=== PATIENT | female | born 1965 | race Caucasian/White ===

== ENCOUNTER 2019-06-06 17:43 | Inpatient (IN) | payer OTHER, SELFPAY ==
[2019-06-06] VITALS (16 sets, daily range): BP systolic 109–140; BP diastolic 60–84; PULSE 104–127; RESP 16–22; TEMP 36.8–37.1; O2SAT 89–94; BMI 31.8
--- NOTE | ~2019-06-06 | US_ITS ---
EXAMINATION: US venous doppler [facility] DATE: 06/07/2019 14:02 INDICATION: Lower limb swelling. TECHNIQUE: Grayscale ultrasound images without and with compression and Doppler ultrasound images of the bilateral lower extremity veins were obtained. COMPARISON: None. FINDINGS: The visualized portions of right common femoral vein, profunda (deep) femoral vein, femoral vein, pop liteal vein, peroneal veins, posterior tibial veins, and greater saphenous vein outflow are patent. The visualized portions of left common femoral vein, profunda femoral vein, femoral vein, popliteal v ein, posterior tibial veins, and greater saphenous vein outflow are patent. There is thrombus in the left peroneal veins. IMPRESSION: 1. Deep vein thrombosis involving the left peroneal veins. I called this result to Karen rodney on 06/07/19 at 14:10. Reviewed, dictated and finalized at location A. EGE COACH IMPRESSION: 1. Deep vein thrombosis involving the left peroneal veins. I called this resul t to Karen Iqbal on 06/07/19 at 14:10.
--- NOTE | ~2019-06-06 | CT_ITS ---
EXAMINATION: CTA chest PE protocol DATE: 06/06/2019 19:59 INDICATION: Dyspnea. Lower limb swelling. TECHNIQUE: Computed tomography (CT) pulmonary angiogram of the chest was performed with 100 mL Omnipa que-350 intravenous contrast. Additional 3D reconstructions utilizing coronal maximum intensity proje ction (MIP) were performed. Automated exposure control and iterative reconstruction technique were em ployed. The dose-length product was 741.68 mGy-cm. COMPARISON: None FINDINGS: Good contrast opacification of the pulmonary arteries. There is mild streak artifact from dense contr ast in the superior vena cava and right atrium as well as a metallic ring on the patient's film which is placed over the sternum. Mild scattered respiratory motion artifact along the streak artifact srinivasan s not significantly limit evaluation. No pulmonary embolism. Mild linear discoid atelectasis at the r ight middle and lower lobes. No pneumonia, pulmonary edema, pleural effusion or pneumothorax. Heart s ize is normal. Atherosclerotic coronary artery calcifications. No pericardial effusion. Thoracic aort a is normal in caliber with no dissection. No pathologically enlarged thoracic lymphadenopathy. Diffu se hepatic steatosis. 9 mm cyst at the upper pole of the right kidney. Mild thoracic spondylosis. IMPRESSION: 1. No pulmonary embolism or other acute cardiopulmonary disease. 2. Diffuse hepatic steatosis. Reviewed, dictated and finalized at location A. [employer]
--- NOTE | ~2019-06-06 | XR_ITS ---
EXAMINATION: XR chest 2V DATE: 06/06/2019 18:34 INDICATION: Cough, congestion, fever and sore throat. TECHNIQUE: PA and lateral views of the chest were obtained. COMPARISON: Chest radiograph dated 10/17/2010 FINDINGS: Mild infrahilar bronchial wall thickening. A few small linear opacities at the anterior lung bases mo st likely atelectasis. No pleural effusion or pneumothorax. The cardiomediastinal silhouette is juan l. Mild thoracic levocurvature with mild spondylosis. IMPRESSION: 1. Perihilar and infrahilar bronchial wall thickening consistent with bronchitis but can also be seen with reactive airway disease/asthma. 2. Mild linear opacities at the lung bases which favors atelectasis over pneumonia. Reviewed, dictated and finalized at location A. TLER IMPRESSION: 1. Perihilar and infrahilar bronchial wall thickening consistent with bronchiti s but can also be seen with reactive airway disease/asthma. 2. Mild linear opacities at the lung bases which favors atelectasis over pneumo kia.
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
--- NOTE | 2019-06-06 18:14 | ECG_ITS ---
Measurements Intervals [place] Rate: 105 P: 51 VT: 164 QRS: 14 QRSD: 85 T: 55 QT: 314 QTc: 416 Interpretive Statements SINUS TACHYCARDIA LOW QRS VOLTAGE IN PRECORDIAL LEADS NONSPECIFIC ST ELEVATION- DIFFUSE LEADS BASELINE ARTIFACT- I, II, AVR ABNORMAL ECG Electronically Signed On 06-06-2019 18:34:46 SLIVER LAP MACHINE TENDER by Alexis Alfonso D.O.
[2019-06-06 18:34] LABS: Basophils Percent Auto 0.3 % (0.2-1.2); Eosinophils Absolute Auto 0.1 K/mm3 (0-0.3); Eosinophils Percent Auto 1.1 % (0-4.4); Hematocrit 40.4 % (37.0-47.0); Hemoglobin 13.2 g/dL (12.0-15.0); Immature Granulocyte Absolute 0.03 K/mm3 (0.00-0.031); Immature Granulocyte Percent A 0.5 % (0-0.5); Mean Corpuscular HGB Conc 32.7 g/dl (32-36); Mean Corpuscular Hemoglobin 30.3 pg (26-34); Mean Corpuscular Volume 92.7 fl (80-100); Mean Platelet Volume 10.6 fl (7.4-10.4); Monocytes Absolute Auto 0.3 K/mm3 (0.1-0.6); Monocytes Percent Auto 5.6 % (2.6-8.5); Neutrophils Absolute Auto 4.5 K/mm3 (1.3-6.7); Neutrophils Percent Auto 74.5 % (45.5-73.1); Platelet Count Result 297 k/mm3 (150-375); Red Blood Count 4.36 M/mm3 (4.2-5.4); Red Cell Distribution Width 14.7 % (11.5-14.5); White Blood Count 6.1 K/mm3 (4.5-10.0)
[2019-06-06 18:46] LABS: Alanine Aminotransferase 23 U/L (4-35); Albumin Level 3.6 g/dL (3.5-5.1); Alkaline Phosphatase 117 U/L (38-126); Aspartate Amino Transferase 51 U/L (14-36); Blood Urea Nitrogen 15 mg/dL (7-17); Calcium 8.3 mg/dL (8.4-10.2); Carbon Dioxide 27 mmol/L (22-30); Chloride 94 mmol/L (98-107); Estimated CRCL calculation 98 ml/min; Estimated Glomerular Filt Rate > 60; Glucose 425 mg/dL (65-105); Lipase 172 U/L (23-300); Potassium 3.8 mmol/L (3.4-5.0); Sodium 134 mmol/L (137-145)
[2019-06-06 18:47] LABS: INR 1.1; Partial Thromboplastin Time 28.5 SECONDS (22.3-36.8); Prothrombin Time 13.4 Seconds (11.1-14.7)
[2019-06-06 18:56] LABS: Add Urine Microscopic? YES; Appearance Urine Clear (Clear); Bacteria Urine Trace /hpf; Bilirubin Urine Negative (Negative); Blood Urine Negative (Negative); Color Urine Yellow (Yellow); Glucose Urine UA 3+ mg/dL (Negative); Ketones Urine Negative (Negative); Leukocyte Esterase Ur Trace LEU/UL (Negative); Mucus Urine Rare /lpf; Nitrate Urine Negative (Negative); Protein Urine Negative (Negative); RBC Urine 0-2 /hpf (0-2); Squamous Epithelial Cell Urine Moderate /hpf (Few); Urobilinogen Urine Negative mg/dL (<2.0); WBC Urine 0-3 /hpf
--- NOTE | 2019-06-06 18:56 | PC.NURSE ---
Patient's oxygen noted to fluctuate between 88-92% on room air. Dr Gomez aware. Will place orders.
[2019-06-06 18:57] LABS: Specific Grav Ur 1.032 (1.001-1.035)
[2019-06-06 18:57] LABS: NT Pro B Type Natriuretic Pept 61 PG/ML (5-100); Troponin I < 0.012 ng/mL (0.000-0.034)
[2019-06-06 19:12] LABS: Alveolar/Arterial O2 Gradient 41.3 mmHg; Base Excess ABG 3.1 mEq/l (+/-2.0); Fractional Inspired Oxygen 21 %; HCO3 ABG 26.8 mEq/l (22.0-26.0); Oxygen Content ABG 17.7 %vol (16.0-22.0); Oxygen Saturation ABG 93.3 % (95.0-100.0); Oxyhemoglobin 89.1 % THb (90.0-100.0); PCO2 ABG 38.1 mmHg (35.0-45.0); PO2 ABG 62.8 mmHg (80.0-100.0); PO2 FiO2 Ratio Arterial Blood 2.99 %; Total Hemoglobin 14.1 g/dL (12.0-18.0); pH ABG 7.465 (7.350-7.450)
[2019-06-06 19:14] LABS: Device ROOM AIR; Modified Allen's Test Pass; Site Drawn RIGHT RADIAL
[2019-06-06] MEDS: IPRATROPIUM BR 0.02% INH SOLN 0.5 MG/2.5 ML VIAL INHALATION ×2 (19:19→21:33)
--- NOTE | 2019-06-06 19:33 | PC.NURSE ---
Patients O2 sat 87-90% room air, patient placed on O2@2L/NC. Will continue to monitor.
[2019-06-06] MEDS: SODIUM CHLORIDE 0.9% IV 1,000 ML 999 ML IV CONT (20:19)
[2019-06-06] MEDS: methylPREDNISolone SOD SUCC 125 MG VIAL IV PUSH (20:51)
[2019-06-06 21:57] LABS: Lactic Acid Reflex 1.6 mmol/L (0.7-2.1)
--- NOTE | 2019-06-06 22:08 | PC.NURSE ---
Patient report faxed to 3rd [facility] med-s[facility].
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
[2019-06-06 22:24] LABS: Glucose Point of Care 364 (65-105)
[2019-06-06] MEDS: SODIUM CHLORIDE 0.9% IV 1,000 ML 100 ML IV CONT (22:45)
--- NOTE | 2019-06-06 23:18 | ADMGEN ---
This patient, Jamia Arevalo, was admitted to [facility] Room 329-01. Patient/family oriented to hospital policies and general routines including ID bracelet, bed and alarms, visiting hours, pain management, procedures, bathroom and other care routines, personal items, smoking policy, room service/diet, and visiting hours. Valuables list has been completed. Information on how to activate the Rapid Response Team has been discussed. Patient/Family are encouraged to report perceived risks to care and to ask questions if they do not understand what they are told or what they should do.
[2019-06-07] VITALS (17 sets, daily range): BP systolic 116–140; BP diastolic 65–70; PULSE 80–109; RESP 18–20; TEMP 36.9–37.1; O2SAT 92–96
[2019-06-07] MEDS: methylPREDNISolone SOD SUCC 125 MG VIAL 60 MG IV PUSH ×2 (01:25→05:57)
[2019-06-07] MEDS: IPRATROPIUM BR 0.02% INH SOLN 0.5 MG/2.5 ML VIAL INHALATION ×3 (02:08→22:16)
[2019-06-07] MEDS: LEVALBUTEROL NEB 1.25 MG/3 ML 0.63 MG INHALATION ×3 (02:08→22:16)
[2019-06-07 06:26] LABS: Basophils Percent Auto 0.3 % (0.2-1.2); Hemoglobin 12.9 g/dL (12.0-15.0); Immature Granulocyte Absolute 0.02 K/mm3 (0.00-0.031); Immature Granulocyte Percent A 0.5 % (0-0.5); Lymphocytes Percent Auto 13.1 % (18.3-44.2); Mean Corpuscular HGB Conc 32.3 g/dl (32-36); Mean Corpuscular Hemoglobin 30.1 pg (26-34); Mean Corpuscular Volume 93.2 fl (80-100); Mean Platelet Volume 10.7 fl (7.4-10.4); Monocytes Absolute Auto 0.1 K/mm3 (0.1-0.6); Monocytes Percent Auto 1.6 % (2.6-8.5); Neutrophils Absolute Auto 3.2 K/mm3 (1.3-6.7); Neutrophils Percent Auto 84.5 % (45.5-73.1); Platelet Count Result 302 k/mm3 (150-375); Red Blood Count 4.29 M/mm3 (4.2-5.4); Red Cell Distribution Width 14.8 % (11.5-14.5); White Blood Count 3.8 K/mm3 (4.5-10.0)
[2019-06-07 06:33] LABS: Blood Urea Nitrogen 13 mg/dL (7-17); Calcium 7.9 mg/dL (8.4-10.2); Carbon Dioxide 26 mmol/L (22-30); Chloride 97 mmol/L (98-107); Estimated CRCL calculation 104 ml/min; Estimated Glomerular Filt Rate > 60; Glucose 430 mg/dL (65-105); Potassium 4.3 mmol/L (3.4-5.0); Sodium 137 mmol/L (137-145)
[2019-06-07 07:23] LABS: Glucose Point of Care 388 (65-105)
[2019-06-07] MEDS: INSULIN ASPART (*BKC) 100 UNITS/ML SUB-Q ×4 (08:04→17:55)
[2019-06-07] MEDS: MONTELUKAST SODIUM 10 MG TABLET PO (08:13)
[2019-06-07] MEDS: hydroCHLOROthiazide 25 MG TABLET PO (08:13)
[2019-06-07] MEDS: glyBURIDE 5 MG TABLET PO (08:13)
[2019-06-07] MEDS: SODIUM CHLORIDE 0.9% IV 1,000 ML 100 ML IV CONT (08:18)
[2019-06-07 12:28] LABS: Glucose Point of Care 386 (65-105)
[2019-06-07] MEDS: INSULIN ASPART (*BKC) 100 UNITS/ML 6 UNITS SUB-Q ×3 (12:40→21:06)
[2019-06-07] MEDS: FUROSEMIDE INJ 40 MG/4 ML VIAL IV PUSH (12:59)
--- NOTE | 2019-06-07 13:02 | PM.IMPN ---
Progress Note: A&P Assessment and Plan (1) Bronchitis: Code(s): J40 - Bronchitis, not specified as acute or chronic Status: Acute Assessment and Plan: Patient presents with increasing shortness of breath, wheezing, hypoxic on arrival. CTA chest shows no pulmonary embolism or other acute cardiopulmonary disease. She does note that she has a history of COPD and asthma and takes albuterol and Atrovent inhalers. Continue nebulized bronchodilators, wean steroids, O2 supplementation as needed. (2) Hypoxia: Code(s): R09.02 - Hypoxemia Status: Resolved Assessment and Plan: Secondary to above. Now tolerating room air this afternoon. (3) DVT (deep venous thrombosis): Qualifiers: Affected thrombotic vein of extremity: peroneal Chronicity: acute DVT location: lower extremity Laterality: left Qualified Code(s): I82.452 - Acute embolism and thrombosis of left peroneal vein Code(s): I82.409 - Acute embolism and thrombosis of unspecified deep veins of unspecified lower extremity Status: Acute Assessment and Plan: Patient presents with increased lower extremity edema bilaterally and admits that she has not been taking her Lasix at home. Venous Dopplers reveal DVT in left peroneal vein. Started therapeutic Lovenox and will check with care coordination tomorrow regarding pricing for a NOAC. (4) Diabetes: Qualifiers: Diabetes mellitus complication status: without complication Diabetes mellitus penitentiary insulin use: without long wall shear operator use Diabetes mellitus type: type 2 Qualified Code(s): E11.9 - Type 2 diabetes mellitus without complications Code(s): E11.9 - Type 2 diabetes mellitus without complications Status: Chronic Assessment and Plan: With hyperglycemia today, last glucose 386. May be secondary to steroids. She reports taking glyburide but was taken off metformin due to GI upset. Continue her home glyburide and SSI coverage. Added scheduled mealtime bolus. Monitor with Accu-Cheks. She reports that she no longer has an Accu-Chek monitor has not checked her glucose levels for some weeks . (5) Hypertension: Qualifiers: Hypertension type: unspecified Qualified Code(s): I10 - Essential (primary) hypertension Code(s): I10 - Essential (primary) hypertension Status: Chronic Assessment and Plan: Stable maintained home hydrochlorothiazide. Continue to monitor. (6) Asthma: Qualifiers: Asthma complication type: unspecified Asthma persistence: unspecified Asthma severity: unspecified severity Qualified Code(s): J45.909 - Unspecified asthma, uncomplicated Code(s): J45.909 - Unspecified asthma, uncomplicated Status: Acute Assessment and Plan: Respiratory regimen outlined above. No respiratory distress today and she is tolerating room air. (7) Seizure: Code(s): R56.9 - Unspecified convulsions Status: Chronic Assessment and Plan: She reports a history of seizure disorder. She tells me that she takes Dilantin but this is not on her home medication. RN contacting pharmacy to confirm home med list. (8) EKG abnormality: Code(s): R94.31 - Abnormal electrocardiogram [ECG] [EKG] Status: Acute Assessment and Plan: Telemetry review shows a ventricular arrhythmia, however on most strips, QRS complexes can be seen marching through the rhythm in question. Patient is completely asymptomatic with this and denies chest pain, palpitations, dizziness. Another EKG obtained, reveals sinus rhythm. Stat potassium level 3.6, magnesium 1.8. Start oral magnesium supplementation. Continue to monitor. (9) Lower extremity edema:
--- NOTE | 2019-06-07 14:15 | ECG_ITS ---
Measurements Intervals [place] Rate: 81 P: 4 HI: 176 QRS: 0 QRSD: 85 T: 30 QT: 355 QTc: 414 Interpretive Statements SINUS RHYTHM INCOMPLETE RIGHT BUNDLE BRANCH BLOCK DELAYED PRECORDIAL R/S TRANSITION LOW QRS VOLTAGE IN PRECORDIAL LEADS BORDERLINE ECG Electronically Signed On 06-07-2019 17:49:42 MANAGER CODING by Alexis Alfonso D.O.
[2019-06-07 15:03] LABS: Magnesium 1.8 mg/dL (1.6-2.3); Potassium 3.6 mmol/L (3.4-5.0)
[2019-06-07 17:12] LABS: Glucose Point of Care 445 (65-105)
[2019-06-07] MEDS: ENOXAPARIN 80 MG/0.8 ML SYRINGE SUB-Q (17:54)
[2019-06-07 20:40] LABS: Glucose Point of Care 372 (65-105)
[2019-06-07] MEDS: INSULIN GLARGINE (*BKC) 100 UNITS/ML 10 UNITS SUB-Q (21:08)
[2019-06-07] MEDS: MAGNESIUM OXIDE 200 MG TABLET PO (21:09)
[2019-06-08] VITALS (15 sets, daily range): BP systolic 108–123; BP diastolic 54–76; PULSE 68–107; RESP 16–20; TEMP 36.6–36.9; O2SAT 92–95
[2019-06-08] MEDS: ENOXAPARIN 80 MG/0.8 ML SYRINGE SUB-Q ×2 (01:43→15:35)
[2019-06-08] MEDS: LEVALBUTEROL NEB 1.25 MG/3 ML 0.63 MG INHALATION ×3 (03:25→22:44)
[2019-06-08] MEDS: IPRATROPIUM BR 0.02% INH SOLN 0.5 MG/2.5 ML VIAL INHALATION ×3 (03:26→22:44)
--- NOTE | 2019-06-08 06:21 | PC.NURSE ---
patient reports rash. slight reddening noted to chest. Doctor ned informed and is enroute to evaluate patient.
[2019-06-08 06:33] LABS: Hematocrit 38.1 % (37.0-47.0); Hemoglobin 12.7 g/dL (12.0-15.0); Mean Corpuscular HGB Conc 33.3 g/dl (32-36); Mean Corpuscular Hemoglobin 30.5 pg (26-34); Mean Corpuscular Volume 91.6 fl (80-100); Mean Platelet Volume 10.8 fl (7.4-10.4); Platelet Count Result 317 k/mm3 (150-375); Red Blood Count 4.16 M/mm3 (4.2-5.4); Red Cell Distribution Width 14.8 % (11.5-14.5); White Blood Count 8.4 K/mm3 (4.5-10.0)
[2019-06-08 06:53] LABS: Blood Urea Nitrogen 22 mg/dL (7-17); Calcium 8.2 mg/dL (8.4-10.2); Carbon Dioxide 31 mmol/L (22-30); Chloride 97 mmol/L (98-107); Estimated CRCL calculation 104 ml/min; Estimated Glomerular Filt Rate > 60; Glucose 332 mg/dL (65-105); Magnesium 1.7 mg/dL (1.6-2.3); Phosphorus 3.6 mg/dL (2.5-4.5); Potassium 3.1 mmol/L (3.4-5.0); Sodium 135 mmol/L (137-145)
[2019-06-08 07:51] LABS: Glucose Point of Care 307 (65-105)
[2019-06-08] MEDS: predniSONE 20 MG TABLET 60 MG PO (09:21)
[2019-06-08] MEDS: MAGNESIUM OXIDE 200 MG TABLET PO ×2 (09:22→21:18)
[2019-06-08] MEDS: POTASSIUM CHLORIDE 20 MEQ TABLET 40 MEQ PO (09:25)
[2019-06-08] MEDS: hydrOXYzine HCL 25 MG TABLET PO (09:25)
[2019-06-08] MEDS: FUROSEMIDE INJ 40 MG/4 ML VIAL IV PUSH (09:26)
[2019-06-08] MEDS: INSULIN ASPART (*BKC) 100 UNITS/ML SUB-Q ×3 (09:30→18:12)
[2019-06-08] MEDS: INSULIN ASPART (*BKC) 100 UNITS/ML 6 UNITS SUB-Q ×4 (09:31→21:23)
[2019-06-08] MEDS: MONTELUKAST SODIUM 10 MG TABLET PO (09:42)
[2019-06-08] MEDS: glyBURIDE 5 MG TABLET PO (09:42)
[2019-06-08] MEDS: hydroCHLOROthiazide 25 MG TABLET PO (09:42)
[2019-06-08 12:08] LABS: Glucose Point of Care 392 (65-105)
[2019-06-08 13:42] LABS: INR 0.9; Prothrombin Time 11.7 Seconds (11.1-14.7)
--- NOTE | 2019-06-08 14:07 | PM.IMPN ---
Progress Note: A&P Assessment and Plan (1) DVT (deep venous thrombosis): Qualifiers: DVT location: lower extremity Affected thrombotic vein of extremity: peroneal Chronicity: acute Laterality: left Qualified Code(s): I82.452 - Acute embolism and thrombosis of left peroneal vein Code(s): I82.409 - Acute embolism and thrombosis of unspecified deep veins of unspecified lower extremity Status: Acute Assessment and Plan: Patient presents with increased lower extremity edema bilaterally and admits that she has not been taking her Lasix at home. Venous Dopplers reveal DVT in left peroneal vein. Started therapeutic Lovenox . Care coordination notes she would not be able to start on NOAC, Coumadin the only option due to her insurance. Start Coumadin 5 mg this evening check daily PT/INR and bridge with Lovenox until INR is therapeutic. Detailed discussion held with patient and her mother at the bedside regarding close follow-up with PCP for INR monitoring. (2) Diabetes: Qualifiers: Diabetes mellitus type: type 2 Diabetes mellitus senior living insulin use: without senior living use Diabetes mellitus complication status: without complication Qualified Code(s): E11.9 - Type 2 diabetes mellitus without complications Code(s): E11.9 - Type 2 diabetes mellitus without complications Status: Chronic Assessment and Plan: With hyperglycemia. She admits she drinking a regular Coke last night with dinner. Steroids may also be contributing. She reports taking glyburide but was taken off metformin due to GI upset. Continue her home glyburide and SSI coverage. Added scheduled mealtime bolus. Monitor with Accu-Cheks. She reports that she no longer has an Accu-Chek monitor has not checked her glucose levels for some weeks . Appreciate environmental educator consult. (3) Bronchitis: Code(s): J40 - Bronchitis, not specified as acute or chronic Status: Acute Assessment and Plan: Patient presents with increasing shortness of breath, wheezing, hypoxia on arrival. CTA chest shows no pulmonary embolism or other acute cardiopulmonary disease. She does note that she has a history of COPD and asthma and takes albuterol and Atrovent inhalers. Continue nebulized bronchodilators, wean steroids, O2 supplementation as needed. (4) Hypoxia: Code(s): R09.02 - Hypoxemia Status: Resolved Assessment and Plan: Secondary to above. Now tolerating room air this afternoon. (5) Hypertension: Qualifiers: Hypertension type: unspecified Qualified Code(s): I10 - Essential (primary) hypertension Code(s): I10 - Essential (primary) hypertension Status: Chronic Assessment and Plan: Stable maintained home hydrochlorothiazide. Continue to monitor. (6) Asthma: Qualifiers: Asthma severity: unspecified severity Asthma persistence: unspecified Asthma complication type: unspecified Qualified Code(s): J45.909 - Unspecified asthma, uncomplicated Code(s): J45.909 - Unspecified asthma, uncomplicated Status: Acute Assessment and Plan: Respiratory regimen outlined above. No respiratory distress today and she is tolerating room air. (7) Seizure: Code(s): R56.9 - Unspecified convulsions Status: Chronic Assessment and Plan: She reports a history of seizure disorder. She tells me that she has taken Dilantin but this is not on her home medication. RN contacting pharmacy to confirm home med list, pharmacy closed this weekend and will attempt contact pharmacy tomorrow to confirm her medications. (8) EKG abnormality: Code(s): R94.31 - Abnormal electrocardiogram [ECG] [EKG] Status: Acute Assessme
[2019-06-08 15:35] LABS: Glucose Point of Care 313 (65-105)
[2019-06-08 16:35] LABS: Glucose Point of Care 337 (65-105)
[2019-06-08] MEDS: WARFARIN (*PBKC) 5 MG TABLET PO (18:12)
[2019-06-08 19:38] LABS: Glucose Point of Care 411 (65-105)
[2019-06-08] MEDS: INSULIN GLARGINE (*BKC) 100 UNITS/ML 14 UNITS SUB-Q (21:25)
[2019-06-08 23:27] LABS: Glucose Point of Care 220 (65-105)
[2019-06-09] VITALS (15 sets, daily range): BP systolic 100–111; BP diastolic 63–73; PULSE 72–113; RESP 16–20; TEMP 36.1–36.6; O2SAT 91–94
[2019-06-09] MEDS: IPRATROPIUM BR 0.02% INH SOLN 0.5 MG/2.5 ML VIAL INHALATION ×3 (02:07→15:01)
[2019-06-09] MEDS: LEVALBUTEROL NEB 1.25 MG/3 ML 0.63 MG INHALATION ×3 (02:07→15:01)
[2019-06-09] MEDS: ENOXAPARIN 80 MG/0.8 ML SYRINGE SUB-Q ×2 (02:43→15:44)
[2019-06-09 06:30] LABS: INR 0.9
[2019-06-09 06:41] LABS: Alanine Aminotransferase 22 U/L (4-35); Albumin Level 3.5 g/dL (3.5-5.1); Alkaline Phosphatase 105 U/L (38-126); Aspartate Amino Transferase 24 U/L (14-36); Bilirubin,Total 0.6 mg/dL (0.2-1.3); Blood Urea Nitrogen 29 mg/dL (7-17); Calcium 8.6 mg/dL (8.4-10.2); Carbon Dioxide 29 mmol/L (22-30); Chloride 91 mmol/L (98-107); Estimated CRCL calculation 104 ml/min; Estimated Glomerular Filt Rate > 60; Glucose 231 mg/dL (65-105); Magnesium 1.7 mg/dL (1.6-2.3); Phosphorus 4.2 mg/dL (2.5-4.5); Potassium 3.2 mmol/L (3.4-5.0); Sodium 134 mmol/L (137-145)
[2019-06-09 06:51] LABS: Glucose Point of Care 231 (65-105)
[2019-06-09] MEDS: FUROSEMIDE INJ 40 MG/4 ML VIAL IV PUSH (08:03)
[2019-06-09] MEDS: MONTELUKAST SODIUM 10 MG TABLET PO (08:03)
[2019-06-09] MEDS: hydroCHLOROthiazide 25 MG TABLET PO (08:03)
[2019-06-09] MEDS: MAGNESIUM OXIDE 200 MG TABLET PO ×2 (08:03→21:21)
[2019-06-09] MEDS: glyBURIDE 5 MG TABLET PO (08:03)
[2019-06-09] MEDS: INSULIN ASPART (*BKC) 100 UNITS/ML SUB-Q ×3 (08:07→17:22)
[2019-06-09] MEDS: INSULIN ASPART (*BKC) 100 UNITS/ML 6 UNITS SUB-Q ×3 (08:07→17:21)
[2019-06-09] MEDS: POTASSIUM CHLORIDE 20 MEQ PACKET (FOR LIQUID) 40 MEQ PO (10:53)
[2019-06-09 11:02] LABS: Glucose Point of Care 330 (65-105)
--- NOTE | 2019-06-09 11:56 | PCSTNOTE ---
On 06/08/19, the therapy lead contacted the [facility] occupational therapy instructor to report that this patient was ordered a speech therapy bedside evaluation, however per the patient's nurse the patient was agitated and not appropriate to be seen for the bedside on 06/09/19. Due to the patient's status and nursing recommendation, the patient was not seen by speech therapy on 06/08/19. We will attempt to evaluate the patient on 06/09/19.
--- NOTE | 2019-06-09 13:47 | PCSTNOTE ---
Patient Speech Therapy evaluation was attempted two times between 1:30-2 pm on [06/09/19] however patient was not in room and not available. Will attempt to complete evaluation as soon as able.
[2019-06-09] MEDS: MAGNES & ALUM HYD/SIMETH/DIPHENHYD/LIDOCAINE 119 ML MOUTHWASH BY MOUTH (17:19)
[2019-06-09] MEDS: WARFARIN (*PBKC) 5 MG TABLET PO (17:20)
--- NOTE | 2019-06-09 17:24 | PM.IMPN ---
Progress Note: A&P Assessment and Plan (1) DVT (deep venous thrombosis): Qualifiers: Affected thrombotic vein of extremity: peroneal Chronicity: acute DVT location: lower extremity Laterality: left Qualified Code(s): I82.452 - Acute embolism and thrombosis of left peroneal vein Code(s): I82.409 - Acute embolism and thrombosis of unspecified deep veins of unspecified lower extremity Status: Acute Assessment and Plan: Patient presents with increased lower extremity edema bilaterally and admits that she has not been taking her Lasix at home. Venous Dopplers reveal DVT in left peroneal vein. Started therapeutic Lovenox . Care coordination notes she would not be able to start on NOAC, Coumadin the only option due to her insurance. Started Coumadin 5mg 06/07; monitor daily PT/INR and bridge with Lovenox until INR is therapeutic. Detailed discussion held with patient and family at the bedside regarding close follow-up with PCP for INR monitoring. Contacted PCP office, [facility], and discussed her case with PCP's nurse stressing the importance of close follow up. (2) Diabetes: Qualifiers: Diabetes mellitus complication status: without complication Diabetes mellitus prison insulin use: without rat exterminator use Diabetes mellitus type: type 2 Qualified Code(s): E11.9 - Type 2 diabetes mellitus without complications Code(s): E11.9 - Type 2 diabetes mellitus without complications Status: Chronic Assessment and Plan: With hyperglycemia. She is noncompliant. Steroids may also be contributing. She reports taking glyburide but was taken off metformin due to GI upset. Continue her home glyburide and SSI coverage. Increased scheduled mealtime bolus and added Lantus. Monitor with Accu-Cheks. She reports that she no longer has an Accu-Chek monitor has not checked her glucose levels for some weeks . Appreciate early childhood educator aide consult. Will need a new glucometer at discharge. (3) Bronchitis: Code(s): J40 - Bronchitis, not specified as acute or chronic Status: Acute Assessment and Plan: Patient presents with increasing shortness of breath, wheezing, hypoxia on arrival. CTA chest shows no pulmonary embolism or other acute cardiopulmonary disease. She does note that she has a history of COPD and asthma and takes albuterol and Atrovent inhalers. Continue nebulized bronchodilators, wean steroids, O2 supplementation as needed. I am told she refused prednisone today. (4) Hypoxia: Code(s): R09.02 - Hypoxemia Status: Resolved Assessment and Plan: Secondary to above. Now tolerating room air this afternoon. (5) Hypertension: Qualifiers: Hypertension type: unspecified Qualified Code(s): I10 - Essential (primary) hypertension Code(s): I10 - Essential (primary) hypertension Status: Chronic Assessment and Plan: Stable, home HCTZ held due to hypokalemia. (6) Asthma: Qualifiers: Asthma complication type: unspecified Asthma persistence: unspecified Asthma severity: unspecified severity Qualified Code(s): J45.909 - Unspecified asthma, uncomplicated Code(s): J45.909 - Unspecified asthma, uncomplicated Status: Acute Assessment and Plan: Respiratory regimen outlined above. No respiratory distress today and she is tolerating room air. (7) Seizure: Code(s): R56.9 - Unspecified convulsions Status: Chronic Assessment and Plan: She reports a history of seizure disorder. She tells me that she has taken Dilantin but this is not on her home medication. Confirmed with pharmacy that she takes dilantin 200mg PO BID. Restart this and monitor INR daily as this can affect the Coumadin.
[2019-06-09 17:30] LABS: Glucose Point of Care 343 (65-105)
[2019-06-09] MEDS: INSULIN GLARGINE (*BKC) 100 UNITS/ML 16 UNITS SUB-Q (21:31)
[2019-06-10] VITALS (12 sets, daily range): BP systolic 102–121; BP diastolic 68–80; PULSE 104–120; RESP 18–20; TEMP 35.8–36.5; O2SAT 90–95
--- NOTE | 2019-06-10 01:11 | PCRCNOTE ---
Window of time for administration has passed. See next scheduled administration.
--- NOTE | 2019-06-10 01:12 | PCRCNOTE ---
Window of time for administration has passed. See next scheduled administration.
[2019-06-10 02:22] LABS: Glucose Point of Care 256 (65-105)
[2019-06-10] MEDS: LEVALBUTEROL NEB 1.25 MG/3 ML 0.63 MG INHALATION ×4 (04:03→21:25)
[2019-06-10] MEDS: IPRATROPIUM BR 0.02% INH SOLN 0.5 MG/2.5 ML VIAL INHALATION ×4 (04:03→21:25)
[2019-06-10] MEDS: ENOXAPARIN 80 MG/0.8 ML SYRINGE SUB-Q ×2 (04:29→15:20)
[2019-06-10 06:08] LABS: Basophils Percent Auto 0.4 % (0.2-1.2); Eosinophils Absolute Auto 0.1 K/mm3 (0-0.3); Eosinophils Percent Auto 1.3 % (0-4.4); Hematocrit 44.6 % (37.0-47.0); Hemoglobin 14.9 g/dL (12.0-15.0); Immature Granulocyte Absolute 0.02 K/mm3 (0.00-0.031); Immature Granulocyte Percent A 0.3 % (0-0.5); Lymphocytes Absolute Auto 1.55 K/mm3 (0.9-3.2); Lymphocytes Percent Auto 19.9 % (18.3-44.2); Mean Corpuscular HGB Conc 33.4 g/dl (32-36); Mean Corpuscular Hemoglobin 30.2 pg (26-34); Mean Corpuscular Volume 90.3 fl (80-100); Mean Platelet Volume 10.5 fl (7.4-10.4); Monocytes Absolute Auto 0.5 K/mm3 (0.1-0.6); Monocytes Percent Auto 6.7 % (2.6-8.5); Neutrophils Absolute Auto 5.6 K/mm3 (1.3-6.7); Neutrophils Percent Auto 71.4 % (45.5-73.1); Platelet Count Result 359 k/mm3 (150-375); Red Blood Count 4.94 M/mm3 (4.2-5.4); Red Cell Distribution Width 14.7 % (11.5-14.5); White Blood Count 7.8 K/mm3 (4.5-10.0)
[2019-06-10 06:19] LABS: Prothrombin Time 13.2 Seconds (11.1-14.7)
[2019-06-10 06:31] LABS: Blood Urea Nitrogen 30 mg/dL (7-17); Calcium 8.5 mg/dL (8.4-10.2); Carbon Dioxide 30 mmol/L (22-30); Chloride 89 mmol/L (98-107); Estimated CRCL calculation 89 ml/min; Estimated Glomerular Filt Rate > 60; Glucose 268 mg/dL (65-105); Magnesium 1.7 mg/dL (1.6-2.3); Phosphorus 4.3 mg/dL (2.5-4.5); Potassium 3.2 mmol/L (3.4-5.0); Sodium 133 mmol/L (137-145)
[2019-06-10 06:43] LABS: Glucose Point of Care 300 (65-105)
[2019-06-10] MEDS: predniSONE 20 MG TABLET 60 MG PO (08:16)
[2019-06-10] MEDS: MONTELUKAST SODIUM 10 MG TABLET PO (08:17)
[2019-06-10] MEDS: FUROSEMIDE 40 MG TABLET PO (08:17)
[2019-06-10] MEDS: MAGNESIUM OXIDE 200 MG TABLET PO ×2 (08:17→21:17)
[2019-06-10] MEDS: MAGNES & ALUM HYD/SIMETH/DIPHENHYD/LIDOCAINE 119 ML MOUTHWASH BY MOUTH ×2 (08:18→17:06)
[2019-06-10] MEDS: glyBURIDE 5 MG TABLET PO (08:19)
[2019-06-10] MEDS: INSULIN ASPART (*BKC) 100 UNITS/ML 8 UNITS SUB-Q ×3 (08:22→17:03)
[2019-06-10] MEDS: INSULIN ASPART (*BKC) 100 UNITS/ML SUB-Q ×3 (08:23→17:06)
[2019-06-10 08:54] LABS: Hemoglobin A1C 10.6 % (<5.7)
[2019-06-10] MEDS: PHENYTOIN SODIUM 100 MG CAP 200 MG PO ×2 (11:10→17:09)
[2019-06-10 11:46] LABS: Glucose Point of Care 289 (65-105)
--- NOTE | 2019-06-10 12:08 | PC.NURSE ---
Pt agitated at the amount of pills we expected her to take . She refused the dilantin as she knows when she is going to have a seizure. She also tried to bargain how many of each of her other meds she was supposed to take. She said she doesnt have to take them. I let Elisabet know. She said to give her the option of seizure precautions or the dilantin. The pt said she would take dilantin. I let her know I would have to go pull a dose as I had already wasted the morning dose. She said, Wait I have some right here . She opened her bedside table compartment and produced a pill cup with two dilantin capsules (white and orange as the morning dose was). She then swallowed them. I attempted to run Mg and K IVPB supplements. Less than five minutes after each, she demanded they needed to be stopped because they irritated her. She said she would take them by mouth. I again checked with Elisabet who ordered two doses of 40mg K, one now and one at 2100. One dose of 400mg MgOx PO.
[2019-06-10] MEDS: POTASSIUM CHLORIDE 20 MEQ TABLET 40 MEQ PO ×2 (12:26→21:17)
[2019-06-10] MEDS: MAGNESIUM OXIDE 400 MG TABLET PO (12:28)
--- NOTE | 2019-06-10 16:18 | PM.IMPN ---
Progress Note: A&P Assessment and Plan (1) DVT (deep venous thrombosis): Qualifiers: DVT location: lower extremity Affected thrombotic vein of extremity: peroneal Chronicity: acute Laterality: left Qualified Code(s): I82.452 - Acute embolism and thrombosis of left peroneal vein Code(s): I82.409 - Acute embolism and thrombosis of unspecified deep veins of unspecified lower extremity Status: Acute Assessment and Plan: ------Patient presents with increased lower extremity edema bilaterally and admits that she has not been taking her Lasix at home. Venous Dopplers reveal DVT in left peroneal vein. Started therapeutic Lovenox . Care coordination notes she would not be able to start on NOAC, Coumadin the only option due to her insurance which was started 06/07. INR still one. If it does not increase by tomorrow may increase warfarin. Previous provider spoke with PCP office and they agreed to follow it. Will notify them when pt discharged. BEL[facility] Buenrostro. No PE on CT (2) Diabetes: Qualifiers: Diabetes mellitus type: type 2 Diabetes mellitus chaser apprentice insulin use: without chcf use Diabetes mellitus complication status: without complication Qualified Code(s): E11.9 - Type 2 diabetes mellitus without complications Code(s): E11.9 - Type 2 diabetes mellitus without complications Status: Chronic Assessment and Plan: -----Last glucose 338 with A1c 10. Will increase glybride and restart metformin. May need insulin if this does not control her glucose. Will need f/u with pcp. She is noncompliant and steroids may also be contributing. She reports taking glyburide but was taken off metformin due to GI upset. Increased scheduled mealtime bolus and added Lantus. Monitor with Accu-Cheks. She reports that she no longer has an Accu-Chek monitor has not checked her glucose levels for some weeks . Appreciate asthma educator consult. Will need a new glucometer at discharge. (3) Bronchitis: Code(s): J40 - Bronchitis, not specified as acute or chronic Status: Acute Assessment and Plan: ----Patient presents with increasing shortness of breath, wheezing, hypoxia on arrival. CTA chest shows no pulmonary embolism or other acute cardiopulmonary disease. She does note that she has a history of COPD and asthma and takes albuterol and Atrovent inhalers. Continue nebulized bronchodilators, and wean steroids. (4) Hypoxia: Code(s): R09.02 - Hypoxemia Status: Resolved Assessment and Plan: ----Resolved. Secondary to above. (5) Hypertension: Qualifiers: Hypertension type: unspecified Qualified Code(s): I10 - Essential (primary) hypertension Code(s): I10 - Essential (primary) hypertension Status: Chronic Assessment and Plan: -----Last bp soft. Pt is eating and drinking with no symptoms. continue to monitor. (6) Asthma: Qualifiers: Asthma severity: unspecified severity Asthma persistence: unspecified Asthma complication type: unspecified Qualified Code(s): J45.909 - Unspecified asthma, uncomplicated Code(s): J45.909 - Unspecified asthma, uncomplicated Status: Acute Assessment and Plan: ------Respiratory regimen outlined above. No respiratory distress today and she is tolerating room air. Steroids decreased. (7) Seizure: Code(s): R56.9 - Unspecified convulsions Status: Chronic Assessment and Plan: ----She reports a history of seizure disorder. She takes dilantin but refused briefly today because she 'didn't think she was going to have a seizure today'. She did end up taking it. Monitor INR. Previous provider confirmed with pharmacy that she takes dilantin 200mg PO BID. (8) Lower extremity edema: Code(s): R60.0 - Localized edema Status: Acute Assessment and Plan: ------Pitting edema to bilateral lower extremit
[2019-06-10 16:50] LABS: Glucose Point of Care 338 (65-105)
[2019-06-10] MEDS: WARFARIN (*PBKC) 5 MG TABLET PO (17:08)
[2019-06-10] MEDS: INSULIN GLARGINE (*BKC) 100 UNITS/ML 16 UNITS SUB-Q (21:18)
[2019-06-10 22:00] LABS: Glucose Point of Care 341 (65-105)
--- NOTE | 2019-06-11 01:34 | PCRCNOTE ---
pt refused 020 tx
[2019-06-11] MEDS: ENOXAPARIN 80 MG/0.8 ML SYRINGE SUB-Q ×2 (02:00→14:16)
[2019-06-11 06:00] VITALS: BP 120/73; PULSE 99; RESP 18; TEMP 36.4; O2SAT 95
[2019-06-11 06:11] LABS: Hematocrit 40.7 % (37.0-47.0); Hemoglobin 13.4 g/dL (12.0-15.0); Mean Corpuscular HGB Conc 32.9 g/dl (32-36); Mean Corpuscular Volume 91.3 fl (80-100); Mean Platelet Volume 10.6 fl (7.4-10.4); Platelet Count Result 334 k/mm3 (150-375); Red Blood Count 4.46 M/mm3 (4.2-5.4); Red Cell Distribution Width 14.5 % (11.5-14.5); White Blood Count 8.4 K/mm3 (4.5-10.0)
[2019-06-11 06:12] LABS: INR 1.3; Prothrombin Time 15.5 Seconds (11.1-14.7)
[2019-06-11 06:29] LABS: Blood Urea Nitrogen 26 mg/dL (7-17); Calcium 8.3 mg/dL (8.4-10.2); Carbon Dioxide 30 mmol/L (22-30); Chloride 95 mmol/L (98-107); Estimated CRCL calculation 104 ml/min; Estimated Glomerular Filt Rate > 60; Glucose 195 mg/dL (65-105); Magnesium 2.1 mg/dL (1.6-2.3); Potassium 3.9 mmol/L (3.4-5.0); Sodium 136 mmol/L (137-145)
[2019-06-11 07:05] LABS: Glucose Point of Care 184 (65-105)
[2019-06-11 07:35] LABS: Folic Acid 7.3 ng/mL (2.76->20)
[2019-06-11] MEDS: glyBURIDE 2.5 MG TABLET 7.5 MG PO (08:19)
[2019-06-11] MEDS: predniSONE 20 MG TABLET 40 MG PO (08:19)
[2019-06-11] MEDS: MONTELUKAST SODIUM 10 MG TABLET PO (08:19)
[2019-06-11] MEDS: PHENYTOIN SODIUM 100 MG CAP 200 MG PO ×2 (08:20→16:41)
[2019-06-11] MEDS: FUROSEMIDE 40 MG TABLET PO (08:20)
[2019-06-11] MEDS: MAGNESIUM OXIDE 200 MG TABLET PO ×2 (08:20→20:52)
[2019-06-11] MEDS: MAGNES & ALUM HYD/SIMETH/DIPHENHYD/LIDOCAINE 119 ML MOUTHWASH BY MOUTH ×3 (08:21→16:42)
[2019-06-11] MEDS: INSULIN ASPART (*BKC) 100 UNITS/ML 8 UNITS SUB-Q ×3 (08:24→16:39)
[2019-06-11 08:28] VITALS: O2SAT 97
[2019-06-11] MEDS: CYANOCOBALAMIN 1,000 MCG TABLET 1000 MCG PO (09:44)
[2019-06-11] MEDS: INSULIN ASPART (*BKC) 100 UNITS/ML SUB-Q ×2 (12:53→16:39)
[2019-06-11 13:02] LABS: Glucose Point of Care 334 (65-105)
[2019-06-11 14:00] VITALS: BP 104/69; PULSE 98; RESP 16; TEMP 36.3; O2SAT 97
--- NOTE | 2019-06-11 14:52 | PM.IMPN ---
Progress Note: A&P Assessment and Plan (1) DVT (deep venous thrombosis): Qualifiers: DVT location: lower extremity Affected thrombotic vein of extremity: peroneal Chronicity: acute Laterality: left Qualified Code(s): I82.452 - Acute embolism and thrombosis of left peroneal vein Code(s): I82.409 - Acute embolism and thrombosis of unspecified deep veins of unspecified lower extremity Status: Acute Assessment and Plan: ------Patient presents with increased lower extremity edema bilaterally and admits that she has not been taking her Lasix at home. Venous Dopplers reveal DVT in left peroneal vein. Started therapeutic Lovenox . No reliable to take it at home so finishing the bridge here. Care coordination notes she would not be able to start on NOAC, Coumadin the only option due to her insurance which was started 06/07. INR 1.3. Previous provider spoke with PCP office and they agreed to follow it. Will notify them when pt discharged. [facility] Buenrostro. No PE on CT (2) Diabetes: Qualifiers: Diabetes mellitus type: type 2 Diabetes mellitus halfway insulin use: without halfway use Diabetes mellitus complication status: without complication Qualified Code(s): E11.9 - Type 2 diabetes mellitus without complications Code(s): E11.9 - Type 2 diabetes mellitus without complications Status: Chronic Assessment and Plan: -----Last glucose 334 with A1c 10. Will increase glybride. May need insulin if this does not control her glucose. Will need f/u with pcp. She is noncompliant and steroids may also be contributing so I have decreased them more quickly since her lungs are clear. She reports taking glyburide but was taken off metformin due to GI upset. Increased scheduled mealtime bolus and added Lantus. Monitor with Accu-Cheks. She reports that she no longer has an Accu-Chek monitor has not checked her glucose levels for some weeks . Appreciate life skills educator consult. Will need a new glucometer at discharge. (3) Bronchitis: Code(s): J40 - Bronchitis, not specified as acute or chronic Status: Acute Assessment and Plan: ----Patient presents with increasing shortness of breath, wheezing, hypoxia on arrival. CTA chest shows no pulmonary embolism or other acute cardiopulmonary disease. She does note that she has a history of COPD and asthma and takes albuterol and Atrovent inhalers. Continue nebulized bronchodilators, and wean steroids. (4) Hypoxia: Code(s): R09.02 - Hypoxemia Status: Resolved Assessment and Plan: ----Resolved. Secondary to above. (5) Hypertension: Qualifiers: Hypertension type: unspecified Qualified Code(s): I10 - Essential (primary) hypertension Code(s): I10 - Essential (primary) hypertension Status: Chronic Assessment and Plan: -----Last bp 120/73. Pt is eating and drinking with no symptoms. continue to monitor. (6) Asthma: Qualifiers: Asthma severity: unspecified severity Asthma persistence: unspecified Asthma complication type: unspecified Qualified Code(s): J45.909 - Unspecified asthma, uncomplicated Code(s): J45.909 - Unspecified asthma, uncomplicated Status: Acute Assessment and Plan: ------Respiratory regimen outlined above. No respiratory distress today and she is tolerating room air. Steroids decreased. (7) Seizure: Code(s): R56.9 - Unspecified convulsions Status: Chronic Assessment and Plan: ----She reports a history of seizure disorder. Previous provider confirmed with pharmacy that she takes dilantin 200mg PO BID. (8) Lower extremity edema: Code(s): R60.0 - Localized edema Status: Acute Assessment and Plan: ------Pitting edema to bilateral lower extremities, resolved on my exam today. (9) Hypokalemia: Code(s): E87.6 - Hypokalemia Status: Ac
--- NOTE | 2019-06-11 16:10 | PCCCNOTE ---
On 06/11/19, the student, [Milvia Noonan ], provided care and completed [facility] documentation on this patient. I have reviewed the student's documentation and agree with the findings.
[2019-06-11] MEDS: WARFARIN (*PBKC) 5 MG TABLET PO (16:41)
[2019-06-11 16:42] LABS: Glucose Point of Care 354 (65-105)
[2019-06-11] MEDS: INSULIN GLARGINE (*BKC) 100 UNITS/ML 16 UNITS SUB-Q (20:45)
[2019-06-11 20:48] LABS: Glucose Point of Care 198 (65-105)
[2019-06-11 22:00] VITALS: BP 124/81; PULSE 91; RESP 18; TEMP 36.6; O2SAT 91
[2019-06-12] MEDS: ENOXAPARIN 80 MG/0.8 ML SYRINGE SUB-Q ×2 (01:28→13:42)
[2019-06-12 06:00] VITALS: BP 139/89; PULSE 96; RESP 18; TEMP 36.6; O2SAT 92
[2019-06-12 07:02] LABS: Glucose Point of Care 175 (65-105)
[2019-06-12 07:02] LABS: Blood Urea Nitrogen 24 mg/dL (7-17); Calcium 7.9 mg/dL (8.4-10.2); Carbon Dioxide 23 mmol/L (22-30); Chloride 96 mmol/L (98-107); Estimated CRCL calculation 127 ml/min; Estimated Glomerular Filt Rate > 60; Glucose 192 mg/dL (65-105); Potassium 3.9 mmol/L (3.4-5.0); Sodium 135 mmol/L (137-145)
[2019-06-12] MEDS: INSULIN ASPART (*BKC) 100 UNITS/ML 8 UNITS SUB-Q ×2 (07:16→11:18)
[2019-06-12 07:42] LABS: INR 1.6; Prothrombin Time 18.5 Seconds (11.1-14.7)
[2019-06-12] MEDS: predniSONE 20 MG TABLET PO (08:41)
[2019-06-12] MEDS: MAGNES & ALUM HYD/SIMETH/DIPHENHYD/LIDOCAINE 119 ML MOUTHWASH BY MOUTH (08:41)
[2019-06-12] MEDS: CYANOCOBALAMIN 1,000 MCG TABLET 1000 MCG PO (08:41)
[2019-06-12] MEDS: glyBURIDE 2.5 MG TABLET 7.5 MG PO (08:41)
[2019-06-12] MEDS: FUROSEMIDE 40 MG TABLET PO (08:41)
[2019-06-12] MEDS: MONTELUKAST SODIUM 10 MG TABLET PO (08:42)
[2019-06-12] MEDS: MAGNESIUM OXIDE 200 MG TABLET PO (08:42)
[2019-06-12] MEDS: PHENYTOIN SODIUM 100 MG CAP 200 MG PO (08:42)
[2019-06-12] MEDS: INSULIN ASPART (*BKC) 100 UNITS/ML SUB-Q (11:18)
[2019-06-12 11:58] LABS: Glucose Point of Care 251 (65-105)
--- NOTE | 2019-06-12 12:43 | PM.DS ---
DS: Diagnosis Admitting Diagnosis Admitting Diagnosis: Hypoxemia Discharge Diagnosis (1) DVT (deep venous thrombosis): Qualifiers: DVT location: lower extremity Affected thrombotic vein of extremity: peroneal Chronicity: acute Laterality: left Qualified Code(s): I82.452 - Acute embolism and thrombosis of left peroneal vein Code(s): I82.409 - Acute embolism and thrombosis of unspecified deep veins of unspecified lower extremity Status: Acute Assessment and Plan: ------Patient presents with increased lower extremity edema bilaterally and admits that she has not been taking her Lasix at home. Venous Dopplers reveal DVT in left peroneal vein. Started therapeutic Lovenox . Patient adamant about going home and threatening to leave AMA. She said she would do the Lovenox at home and that her mother also knows how to do it as well. Spoke with her about the significance in the importance of doing this and getting her INR checked tomorrow and following up with her primary care doctor Sunday. She agrees. Care coordination taylor Lovenox and it is affordable. Continue Coumadin. Last INR 1.6. BELTRAN Buenrostro will see her Sunday at 11:00 a[address] No PE on CT (2) Diabetes: Qualifiers: Diabetes mellitus type: type 2 Diabetes mellitus chcf insulin use: without chcf use Diabetes mellitus complication status: without complication Qualified Code(s): E11.9 - Type 2 diabetes mellitus without complications Code(s): E11.9 - Type 2 diabetes mellitus without complications Status: Chronic Assessment and Plan: -----Last glucose 251 with A1c 10. Glyburide increased and patient educated. May need insulin if this does not control her glucose outpatient. Will need f/u with pcp. Her lungs are clear and no need for further steroids which increased her glucose. She reports taking glyburide but was taken off metformin due to GI upset. She reports that she no longer has an Accu-Chek monitor has not checked her glucose levels for some weeks . I have sent her home with a glucometer (3) Bronchitis: Code(s): J40 - Bronchitis, not specified as acute or chronic Status: Acute Assessment and Plan: ----Patient presents with increasing shortness of breath, wheezing, hypoxia on arrival. CTA chest shows no pulmonary embolism or other acute cardiopulmonary disease. She does note that she has a history of COPD and asthma and takes albuterol and Atrovent inhalers. Lungs are clear to auscultation today. Steroids stopped. (4) Hypoxia: Code(s): R09.02 - Hypoxemia Status: Resolved Assessment and Plan: ----Resolved. Secondary to above. (5) Hypertension: Qualifiers: Hypertension type: unspecified Qualified Code(s): I10 - Essential (primary) hypertension Code(s): I10 - Essential (primary) hypertension Status: Chronic Assessment and Plan: -----Last bp 139/89. (6) Asthma: Qualifiers: Asthma severity: unspecified severity Asthma persistence: unspecified Asthma complication type: unspecified Qualified Code(s): J45.909 - Unspecified asthma, uncomplicated Code(s): J45.909 - Unspecified asthma, uncomplicated Status: Acute Assessment and Plan: ------Respiratory regimen outlined above. No respiratory distress today and she is tolerating room air. (7) Seizure: Code(s): R56.9 - Unspecified convulsions Status: Chronic Assessment and Plan: ----She reports a history of seizure disorder. Previous provider confirmed with pharmacy that she takes dilantin 200mg PO BID. (8) Lower extremity edema: Code(s): R60.0 - Localized edema Status: Acute Assessment and Plan: ------Pitting edema to bilateral lower extremities, resolved on my exam today. (9) Hypokalemia: Code(s): E87.6 - Hypokalemia Status: Acute
== END 2019-06-12 14:19 | disposition home or self-care (01) | DRG 197 ==
LOC: ANHED 18:03 → ANH3MEDSUR 21:53
PROVIDERS: Physician Assistant; Admitting Provider Family Medicine; Emergency Provider Emergency Medicine; Visit Provider Family Medicine
DX: I82.452 Acute embolism and thrombosis of left peroneal vein (principal); J44.0 Chronic obstructive pulmonary disease with (acute) lower respiratory infection; J20.9 Acute bronchitis, unspecified; I10 Essential (primary) hypertension; E87.6 Hypokalemia; R13.10 Dysphagia, unspecified; R00.0 Tachycardia, unspecified; G40.909 Epilepsy, unspecified, not intractable, without status epilepticus; F41.9 Anxiety disorder, unspecified; I25.10 Atherosclerotic heart disease of native coronary artery without angina pectoris; E11.65 Type 2 diabetes mellitus with hyperglycemia; R94.31 Abnormal electrocardiogram [ECG] [EKG]; E66.9 Obesity, unspecified; Z68.31 Body mass index [BMI] 31.0-31.9, adult; Z95.5 Presence of coronary angioplasty implant and graft
CPT/HCPCS: 36415; 36600; 71046; 71275; 80048; 80053; 81001; 82607; 82746; 82805; 82948; 83036; 83605; 83690; 83735; 83880; 84100; 84132; 84484; 85025; 85027; 85610; 85730; 87040; 87081; 87804; 87880; 92610; 93005; 93970; 94640; 96361; 96374; 96376; 99285; A9270; G0378; G0379; J1650; J1815; J1940; J2930; J3475; J3480; J7030; J7512; Q9967

== ENCOUNTER 2019-08-11 20:31 | Emergency (ER) | payer OTHER, SELFPAY ==
[2019-08-11 20:38] VITALS: BP 116/99; PULSE 110; RESP 16; TEMP 36.3; O2SAT 96
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
== END 2019-08-11 22:11 | disposition home or self-care (01) ==
PROVIDERS: Emergency Provider Emergency Medicine
DX: K02.9 Dental caries, unspecified (principal); H65.01 Acute serous otitis media, right ear; F41.9 Anxiety disorder, unspecified; J45.909 Unspecified asthma, uncomplicated; E11.9 Type 2 diabetes mellitus without complications; I10 Essential (primary) hypertension; I34.1 Nonrheumatic mitral (valve) prolapse; Z95.5 Presence of coronary angioplasty implant and graft; Z79.84 Long term (current) use of oral hypoglycemic drugs; Z79.01 Long term (current) use of anticoagulants
CPT/HCPCS: 87081; 87880; 99283